=== PATIENT | female | born 1970 | race Caucasian/White ===

== ENCOUNTER 2022-03-07 07:01 | Outpatient (CLI) | payer OTHER, SELFPAY ==
--- NOTE | 2022-03-07 07:15 | CRLHL7_ITS ---
For Patients: As a result of the Century Cures Act, medical imaging exams and procedure reports are released immediately into your electronic medical record. You may view this report before your referring provider. If you have questions, please contact your health care provider. INDICATION: BLEEDING WITH IUD, F/U FIBROIDS COMPARISON: 03/10/2020 TECHNIQUE: 2D mack scale and color Doppler images were acquired of the pelvis using a transabdominal and transvaginal approach. FINDINGS: Multiple uterine fibroids are present including a large exophytic left fundal fibroid measuring 7.1 x 4.6 x 8.7 cm, previously described on CT scan 08/07/2019. Other intramural fibroids are present, including an anterior fibroid measuring 3.6 x 2.3 x 3.4 cm and a posterior fibroid measuring 3.1 x 2.5 x 3.4 cm. Uterus measures 11.5 cm in length by 6.8 cm in AP diameter by 7.7 cm in transverse dimension. The myometrium has a heterogeneous echotexture. The endometrial lining appears heterogeneous and somewhat poorly defined and measures 12 mm in composite thickness. IUD in the lower uterine segment. The right ovary measures 3.7 x 1.3 x 2.4 cm in size and the left ovary measures 4.5 x 3.2 x 4.4 cm. The ovaries demonstrate normal arterial and venous blood flow on color Doppler analysis. There are no suspicious fluid collections within the cul-de-sac. IMPRESSION: Leiomyomatous uterus again noted including a large left fundal exophytic fibroid measuring 8.7 cm. IUD located within the lower uterine segment. Endometrium is thickened, heterogeneous and poorly defined measuring 12 millimeters. Dictated by Shane Resendiz MD @ 03/08/2022 11:57:36 AM (Electronically Signed)
== END 2022-03-07 07:02 | disposition home or self-care (01) ==
PROVIDERS: PCP Physician Assistant Medical; Visit Provider Physician Assistant
DX: N93.9 Abnormal uterine and vaginal bleeding, unspecified (principal); D25.9 Leiomyoma of uterus, unspecified
CPT/HCPCS: 76830; 76856

== ENCOUNTER 2022-12-06 11:01 | Outpatient (CLI) | payer OTHER, SELFPAY | END 2022-12-06 11:02 | disposition home or self-care (01) | LOC: NFLDREF 12-07 12:32 | PROVIDERS: PCP Physician Assistant Medical; Referring Provider Physician Assistant Medical; Visit Provider Physician Assistant Medical | DX: I10 Essential (primary) hypertension (principal); R73.03 Prediabetes; E66.9 Obesity, unspecified; F41.9 Anxiety disorder, unspecified; Z13.6 Encounter for screening for cardiovascular disorders | CPT/HCPCS: 80053; 80061; 84443 ==

== ENCOUNTER 2023-04-05 07:02 | Outpatient (CLI) | payer MEDICARE, SELFPAY ==
--- NOTE | 2023-04-05 07:15 | CRLHL7_ITS ---
For Patients: As a result of the Century Cures Act, medical imaging exams and procedure reports are released immediately into your electronic medical record. You may view this report before your referring provider. If you have questions, please contact your health care provider. INDICATION: LEIOMYOMA OF UTERUS COMPARISON: 03/07/2022 TECHNIQUE: 2D mack scale and color Doppler images were acquired of the pelvis using a transabdominal and transvaginal approach. FINDINGS: Exophytic fibroid arises from the uterine fundus with partial calcifications measuring 4.5 x 3.6 x 5.4 cm. Additional fundal fibroid is present measuring 3.0 x 2.4 x 3.1 cm which is mostly intramural. Right-sided intramural fibroid is present posteriorly measuring 3.1 x 3.4 x 3.2 cm. Partially exophytic left-sided fibroid noted measuring 2.5 x 1.9 x 2.3 cm. Uterus measures 9.4 cm in length by 6.0 cm in AP diameter by 6.6 cm in transverse dimension. The myometrium has a heterogeneous echotexture. The endometrial lining measures 12 mm in composite thickness. IUD in the lower uterine segment. The right ovary measures 3.0 x 1.7 x 2.4 cm in size and the left ovary measures 4.0 x 3.1 x 2.8 cm. The ovaries demonstrate normal arterial and venous blood flow on color Doppler analysis. There are no suspicious fluid collections within the cul-de-sac. Simple left ovarian cyst measuring 2.8 x 2.4 x 2.8 cm. IMPRESSION: Multiple uterine fibroids measuring up to 5.4 cm. Endometrium measures 1.2 cm. IUD in the lower uterine segment. Dictated by Shane Resendiz MD @ 04/05/2023 8:29:19 AM (Electronically Signed)
== END 2023-04-05 07:03 | disposition home or self-care (01) ==
PROVIDERS: PCP Physician Assistant Medical; Visit Provider Physician Assistant
DX: D25.9 Leiomyoma of uterus, unspecified (principal)
CPT/HCPCS: 76830; 76856

== ENCOUNTER 2023-06-13 14:56 | Outpatient (CLI) | payer BC, SELFPAY ==
--- NOTE | 2023-06-13 15:20 | MM_ITS ---
Patient: SALENA PIÑA Facility:?[facility] Patient ID:?[id number] Site Patient ID:?[id number]. Site :?[id number] Study:?XRay-Breast Bilateral 3D W/CAD-06/13/2023 4:09:25 PM Ordering Physician:Eboni June Final Report: BILATERAL SCREENING MAMMOGRAM WITH COMPUTER-AIDED DETECTION AND TOMOSYNTHESIS TECHNIQUE: CC and MLO views were obtained. These mammographic images have been obtained using full-field digital technique. These mammographic images were interpreted with the benefit of computer-aided detection. Breast Tomosynthesis was used in this interpretation. COMPARISON FILM: 01/12/21, 12/14/19, 12/04/18. FINDINGS: There are scattered areas of fibroglandular density. IMPRESSION: There is no radiographic evidence for malignancy. ASSESSMENT: BI-RADS Category 1: Negative RECOMMENDATION: Routine screening mammogram in 1 year. A lay language report of this examination will be provided to the patient. Shane Resendiz M.D. Diagnostic Radiologist [email or web address] DSM/sp R& Transcribed: 5:37 p.m. SP/Dictated by: Shane Resendiz MD @ 06/14/2023 10:49:00 AM Signed by:?Shane Resendiz MD @06/14/2023 5:40:06 PM (Electronic Signature)
== END 2023-06-13 14:57 | disposition home or self-care (01) ==
PROVIDERS: PCP Physician Assistant Medical; Visit Provider Physician Assistant
DX: Z12.31 Encounter for screening mammogram for malignant neoplasm of breast (principal)
CPT/HCPCS: 77063; 77067

== ENCOUNTER 2024-02-21 08:22 | Outpatient (CLI) | payer BC, SELFPAY | END 2024-02-21 08:23 | disposition home or self-care (01) | PROVIDERS: PCP Physician Assistant Medical; Referring Provider Physician Assistant Medical; Visit Provider Physician Assistant Medical | DX: I10 Essential (primary) hypertension (principal); R73.03 Prediabetes; E66.9 Obesity, unspecified; Z13.6 Encounter for screening for cardiovascular disorders | CPT/HCPCS: 80053; 80061; 84443 ==

== ENCOUNTER 2024-04-17 09:07 | Outpatient (CLI) | payer BC, SELFPAY ==
[2024-04-19 20:27] LABS: HPV Source Cervix; HPV, High Risk by TMA Not Detected
== END 2024-04-17 09:08 | disposition home or self-care (01) ==
PROVIDERS: PCP Physician Assistant Medical; Visit Provider Physician Assistant
DX: N92.1 Excessive and frequent menstruation with irregular cycle (principal); R87.618 Other abnormal cytological findings on specimens from cervix uteri; Z12.4 Encounter for screening for malignant neoplasm of cervix
CPT/HCPCS: 83001; 87624; 87625; 88141; 88142

== ENCOUNTER 2024-04-23 15:37 | Outpatient (CLI) | payer BC, SELFPAY ==
--- NOTE | 2024-04-23 16:00 | CRLHL7_ITS ---
For Patients: As a result of the Century Cures Act, medical imaging exams and procedure reports are released immediately into your electronic medical record. You may view this report before your referring provider. If you have questions, please contact your health care provider. INDICATION: abnormal bleeding, brown discharge for long period of time, known fibroids COMPARISON: 04/05/2023 TECHNIQUE: 2D mack scale and color Doppler images were acquired of the pelvis using a transabdominal and transvaginal approach. FINDINGS: Intramural fibroid within the left uterine fundus measures 1.7 x 1.9 x 2.5 cm. Additional partially exophytic left fundal fibroid measures 3.0 x 1.9 x 2.8 cm. Lower uterine segment right-sided uterine fibroid measures 3.7 x 3.2 x 3.7 cm. Left exophytic fibroid with calcifications measures 3.6 x 4.3 x 3.7 cm. Other smaller fibroids are also present. Uterus measures 9.7 cm in length by 6.1 cm in AP diameter by 8.4 cm in transverse dimension. The endometrial lining measures 6.2 mm in composite thickness. The right ovary measures 2.7 x 3.0 x 2.2 cm in size and the left ovary is not visualized. The right ovary demonstrates normal arterial and venous blood flow on color Doppler analysis. There are no suspicious fluid collections within the cul-de-sac. IMPRESSION: Multiple uterine fibroids measure up to 4.3 cm, previously measuring up to 5.4 cm. Endometrium measures 6.2 millimeters. No endometrial fluid. Dictated by Shane Resendiz MD @ 04/24/2024 11:28:18 AM (Electronically Signed)
== END 2024-04-23 15:38 | disposition home or self-care (01) ==
LOC: US 15:38
PROVIDERS: PCP Physician Assistant Medical; Visit Provider Physician Assistant
DX: N92.1 Excessive and frequent menstruation with irregular cycle (principal); D25.9 Leiomyoma of uterus, unspecified
CPT/HCPCS: 76830; 76856

== ENCOUNTER 2024-06-09 18:08 | Outpatient (CLI) | payer BC, SELFPAY ==
--- NOTE | 2024-06-09 18:40 | CRLHL7_ITS ---
For Patients: As a result of the Century Cures Act, medical imaging exams and procedure reports are released immediately into your electronic medical record. You may view this report before your referring provider. If you have questions, please contact your health care provider. BILATERAL SCREENING MAMMOGRAM WITH COMPUTER-AIDED DETECTION AND TOMOSYNTHESIS TECHNIQUE: CC and MLO views were obtained. These mammographic images have been obtained using full-field digital technique. These mammographic images were interpreted with the benefit of computer-aided detection. Breast Tomosynthesis was used in this interpretation. COMPARISON FILM: 06/13/23, 01/12/21, 12/04/18. FINDINGS: There are scattered areas of fibroglandular density. IMPRESSION: There is no radiographic evidence for malignancy. ASSESSMENT: BI-RADS Category 1: Negative RECOMMENDATION: Routine screening mammogram in 1 year. A lay language report of this examination will be provided to the patient. Shane Resendiz M.D. Diagnostic Radiologist [email or web address] SP/Dictated by: Shane Resendiz MD @ 06/10/2024 9:07:00 AM (Electronically Signed)
== END 2024-06-09 18:09 | disposition home or self-care (01) ==
PROVIDERS: PCP Physician Assistant Medical; Visit Provider Physician Assistant
DX: Z12.31 Encounter for screening mammogram for malignant neoplasm of breast (principal)
CPT/HCPCS: 77063; 77067